=== PATIENT | female | born 1990 | race Caucasian/White ===

== ENCOUNTER 2020-02-23 18:43 | Emergency (ER) | payer OTHER, SELFPAY ==
[2020-02-23 18:56] VITALS: BP 145/91; PULSE 90; RESP 18; TEMP 36.6; O2SAT 100
--- NOTE | 2020-02-23 19:01 | ED.WOUNDLAC ---
HPI - Wound/Laceration General Chief Complaint: Skin/Abscess/Foreign Body Stated Complaint: non healing wound Time Seen by Provider: 02/23/20 19:01 Source: patient and RN notes reviewed Mode of arrival: ambulatory Limitations: no limitations History of Present Illness HPI narrative: 29-year-old female presents with concern for a wound on her left lower leg. Reports she lacerated the wound 7 days ago, reports she did not seek treatment at that time. Reports the wound has began to be surrounded with redness, tenderness. She denies fever, streaking, malaise, drainage. Related Data Home Medications Medication Instructions Recorded Confirmed bupropion HCl PO 02/23/20 duloxetine mg PO 02/23/20 duloxetine mg PO 02/23/20 lisdexamfetamine [Vyvanse] mg 02/23/20 lisdexamfetamine [Vyvanse] mg 02/23/20 Allergies Allergy/AdvReac Type Severity Reaction Status Date / Time No Known Allergies Allergy Unverified 07/16/12 12:09 Review of Systems Review of Systems: Narrative: CONSTITUTIONAL: Denies malaise, chills, sweats, or fever. CARDIOVASCULAR: Denies chest pain, palpitations, or edema. RESPIRATORY: Denies dyspnea. SKIN: Reports wound with surrounding redness, tenderness on her left lower leg. Denies drainage MUSCULOSKELETAL: Denies myalgia. All systems reviewed & are unremarkable except as noted in HPI and below PMFSH Comments At time of signature, agree with nursing past medical, surgical, social and family history. There is no relevant family history pertinent to the presenting complaint Exam Narrative: Exam Narrative: GENERAL: Well-appearing, well-nourished, and in no acute distress. HEAD: Normocephalic, atraumatic. EYES: PERRLA, conjunctivae clear, and EOMI. No nystagmus. ENT: Mucous membranes moist. NECK: Supple. CHEST: No respiratory distress. Speaks in full sentences. HEART: Regular rate and rhythm. EXTREMITIES: Left lower leg has grossly normal range of motion, normal strength and sensation. SKIN: Warm, dry, no rash. 5 cm x 1 cm linear wound with yellow tissue bed with irregular margins noted to the left anterior lower leg surrounded by approximately 3 cm of erythema, induration. No drainage noted. Wound edges not approximated NEURO: Alert and oriented x3. PSYCH: Normal mood and affect Course Course Emergency Course: Patient is aware of diagnosis, understands and agrees to treatment plan. Anticipatory guidance given. Patient agrees to follow-up as directed and is aware of reasons to seek care at the emergency department. Portions of this record may have been created with voice recognition software Vital Signs Vital signs: Vital Signs Temperature 97.9 F 02/23/20 18:56 Pulse Rate 90 02/23/20 18:56 Respiratory Rate 18 02/23/20 18:56 Blood Pressure 145/91 H 02/23/20 18:56 Pulse Oximetry 100 02/23/20 18:56 Temperature 97.9 F 02/23/20 18:56 Pulse Rate 90 02/23/20 18:56 Respiratory Rate 18 02/23/20 18:56 Blood Pressure 145/91 H 02/23/20 18:56 Pulse Oximetry 100 02/23/20 18:56 Reviewed. Patient has been instructed to follow up with her primary care provider within the next week regarding her elevated blood pressure today. MDM - Wound/Laceration MDM Narrative Medical decision making narrative: Exam findings show no acute concerns or changes; patient is non-toxic appearing and is in no distress. Patient is appropriate for outpatient treatment and follow-up. Differential Diagnosis Differential diagnosis: Likely laceration, abscess and other (Cellulitis, infection) Critical Care Time Critical Care Time Critical Care Time: No Discharge Plan Discharge Clinical Impression: Wound infection Patient Disposition: Home, Self-Care Condition: Stable Instructions: Antibiotic Form, Wound Infection (ED) Additional Instructions: Keep wound clean, and dry. Apply antibiotic ointment twice daily. Cover with bandage as needed. Clean with soap and water twice daily, but do
== END 2020-02-23 19:18 | disposition home or self-care (01) ==
PROVIDERS: Emergency Provider Nurse Practitioner; PCP Family Medicine
DX: L08.9 Local infection of the skin and subcutaneous tissue, unspecified (principal); S81.802A Unspecified open wound, left lower leg, initial encounter; X58.XXXA Exposure to other specified factors, initial encounter; F90.9 Attention-deficit hyperactivity disorder, unspecified type; F32.9 Major depressive disorder, single episode, unspecified
CPT/HCPCS: 99213; G0463